=== PATIENT | female | born 1970 | race African-American/Black ===

== ENCOUNTER 2016-07-12 20:31 | Emergency (ER) | payer OTHER ==
--- NOTE | ~2016-07-12 | CR20 ---
[facility] A Service of [facility] RADIOLOGY TEXT RESULTS PATIENT: AMARJIT CASTELLANOS LOCATION: [facility]FT[facility] : 72 UNIT #: [id number] AGE: [address]: Sondra Gentile APRN SEX: F ORDER DR: [id number] [facility] [address] [place], [place] [address] [id number] E MR#: [id number] Acc #: [id number] NAME: AMARJIT CASTELLANOS : 1970 SEX: F STUDY DATE/TIME: 07/12/2016 20:16 UNIT: [facility] ROOM: STUDY DESCRIPTION: CR Ankle Min 3 Views Lt Attending Physician: Sondra Gentile A.P.R.N. Ordering Physician: Sondra Gentile A.P.R.N. Primary Care Physician: Kane Bustamante M.D. MEDICAL IMAGING REPORT This report is preliminary unless electronic signature is present EXAM Left ankle, 3 views. DATE OF EXAM 07/12/2016 HISTORY Ankle pain and swelling for 3 days. No injury. FINDINGS 3 views of the left ankle demonstrate mild soft tissue swelling over the lateral malleolus. Bone alignment is normal. No joint space narrowing or fracture or dislocation. Small plantar calcaneal spur. IMPRESSION 1. Soft tissue swelling over the lateral malleolus. 2. No fracture. Satisfactory bone alignment. Dictated by... Eze Guillaume M.D. THIS IS AN ELECTRONICALLY VERIFIED REPORT Eze Guillaume M.D. at 07/13/2016 9:11 AM KIMBERLYN/ernst TD: 07/12/2016 23:33 JOB #: [id number] MEDICAL IMAGING REPORT Page 1 of 1 COPY
== END 2016-07-12 21:05 | disposition home or self-care (01) ==
LOC: CFTX 20:31
DX: S93.402A Sprain of unspecified ligament of left ankle, initial encounter (principal); Z88.0 Allergy status to penicillin; K21.9 Gastro-esophageal reflux disease without esophagitis; X58.XXXA Exposure to other specified factors, initial encounter; Y92.69 Other specified industrial and construction area as the place of occurrence of the external cause
CPT/HCPCS: 29515; 73610; 99283